=== PATIENT | male | born 2000 | race Caucasian/White ===

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

== ENCOUNTER 2019-06-26 20:08 | Emergency (ER) | payer SELFPAY ==
[2019-06-26 20:15] VITALS: BP 139/87; PULSE 61; TEMP 98.3; BMI 27.8
[2019-06-26] MEDS ORDERED: DIPHTH,PERTUSS(ACELL),TET 0.5 ML DISP.SYRIN IM ONE (20:51)
[2019-06-26] MEDS ORDERED: IBUPROFEN 400 MG TABLET (FP) PO ONE ×2 (20:51→20:53)
[2019-06-26] MEDS ORDERED: TETANUS IMMUNE GLOBULIN 250 UNITS DISP.SYRIN IM ONE (20:51)
[2019-06-26] MEDS ORDERED: TETANUS AND DIPHTHERIA TOXOID 0.5 ML DISP.SYRIN IM ONE (20:51)
[2019-06-26] MEDS ORDERED: SULFAMETHOXAZOLE/TRIMETHOPRIM 800MG/160MG D.S. TABLET PO ONE (21:08)
--- NOTE | 2019-06-26 21:09 | PDOC ---
Documentation entered by Ben Jansen SCRIBE, acting as scribe for Maine Palma MD. Maine Palma MD: This documentation has been prepared by the johneInderjit Aiswarya, SCRIBE, under my direction and personally reviewed by me in its entirety. I confirm that the documentation accurately reflects all work, treatment, procedures, and medical decision making performed by me. History of Present Illness - General Chief Complaint: Pain Stated Complaint: L 1ST DIGIT INJURY Time Seen by Provider: 06/26/19 20:45 History Source: Patient Exam Limitations: No Limitations - History of Present Illness Initial Comments: 06/26/19 21:06 Assessment and plan: This is a 19-year-old male who comes in complaining of injury to his left thumb. Patient has a complete avulsion of the left nail with with some associated tearing and maceration of the tissues surrounding the nailbed. There was also a laceration of the nail bed. X-ray was done that does show a tuft fracture of the distal phalanx that is nondisplaced. Procedure note nailbed laceration repair Finger was anesthetized with 1% lidocaine via a ring block and finger and laceration were cleaned thoroughly with irrigation and scrubbing Nailbed was repaired with a total of 4 sutures of 4-0 Polysorb. Sterile dressing and Band-Aid were applied patient tolerated well. Patient given a thumb splint and discharged. Patient started on an antibiotic given the fact that it was a dirty wound and also a tuft fracture. Patient given Bactrim for which she will take for 7 days. To prevent infection Patient has not had any immunizations including no childhood immunizations therefore is never had a tetanus shot so patient was given tetanus immunoglobulin in addition to a Boostrix. 06/26/19 22:09 The patient is a 19 year old male, with no significant PMH, who presents to the emergency department with left thumb laceration that occurred today. The patient states he was working on his car when his nail came off. The patient reports bleeding and mild pain to the left 5th digit nail bed. Denies any numbness or tingling. Denies pain on flexion and extension. Denies any other trauma. PAST MEDICAL HISTORY: no significant history PAST SURGICAL HISTORY: no significant history FAMILY HISTORY: no pertinent history SOCIAL HISTORY: Pt lives with family and is employed. MEDICATIONS: reviewed ALLERGIES: As per nursing notes Adult ROS General: No fevers or chills, no weakness, no weight loss CardioVascular: No chest pain or shortness of breath Respiratory:No cough, or wheezing. Musculoskeletal: No joint or muscle pain or swelling Neurologic: No headache, vertigo, dizziness or loss of consciousness Psychiatric: nor depression Skin: +left thumb laceration Endocrine: no increased thirst or abnormal weight change Allergic: no skin or latex allergy All other systems reviewed and normal Basic PE GENERAL: The patient is awake, alert, and fully oriented, in no acute distress. HEAD: Normal with no signs of trauma. EYES: Pupils equal, round and reactive to light, extraocular movements intact, sclera anicteric, conjunctiva clear. EXTREMITIES: Normal range of motion, no edema. NEUROLOGICAL: Normal speech, normal gait. PSYCH: Normal mood, normal affect. SKIN: +Left thumbnail with some avulsion surrounding the skin and nail. 1 cm laceration mid section of nail bed with active bleeding of the fingernail. Tenderness on palpation. Full ROM and sensation. Tenderness and swelling at the base of thumb. Past History - Past Medical History Allergies/Adverse Reactions: Allergies Allergy/AdvReac Type Severity Reaction Status Date / Time No Known Allergies Allergy Verified 11/04/16 17:26 Home Medications: Ambulatory Orders Sulfamethoxazole/Trimethoprim [Bactrim DS -] 1 tab PO BID #14 tablet 06/26/19 COPD: No - Immunization History Immunization Up to Date: No - Psycho Social/Smoking Cessation Hx Smoking History: Unknown if ever smoked Have you smoked in the past 12 months: No Number of Cigarettes Smoked Daily: 0 Information on smoking cessation initiated: No Hx Alcohol Use: No Drug/Substance Use Hx: No Substance Use Type: None *Physical Exam - Vital Signs Last Vital Signs Temp Pulse Resp BP Pulse Ox 98.3 F 61 14 139/87 96 06/26/19 20:10 06/26/19 20:10 06/26/19 20:10 06/26/19 20:10 06/26/19 20:10 ED Treatment Course - RADIOLOGY Radiology Studies Ordered: Category Date Time Status FINGER(S) LEFT [RAD] Stat Radiology 06/26/19 20:50 Ordered - Medications Given in the ED: ED Medications Discontinued Medications Generic Name Dose Route Start Last Admin Trade Name Freq PRN Reason Stop Dose Admin Ibuprofen 800 mg 06/26/19 20:51 06/26/19 20:53 Motrin - PO 06/26/19 20:52 800 mg ONCE ONE Administration Discharge - Discharge Information Problems reviewed: Yes Clinical Impression/Diagnosis: Open fracture of tuft of distal phalanx of left thumb Nail avulsion, finger Qualifiers: Encounter type: initial encounter Qualified Code(s): S61.309A - Unspecified open wound of unspecified finger with damage to nail, initial encounter Condition: Good Disposition: HOME - Admission No - Additional Discharge Information Prescriptions: Sulfamethoxazole/Trimethoprim [Bactrim DS -] 1 tab PO BID #14 tablet - Follow up/Referral Referrals: Onesimo Broderick MD [Staff Physician] - - Patient Discharge Instructions Additional Instructions: Tylenol or Motrin as needed for pain. Take Bactrim 1 tablet twice a day for 7 days to prevent infection. Clean the laceration once a day with some peroxide reapply some bacitracin and a Band-Aid. Keep the thumb covered when you are working in a dirty environment to keep it clean. Wear the splint as needed for comfort and protection. Return to the emergency department immediately with ANY new, persistent or worsening symptoms. Continue any medications as previously prescribed by your physician. You should follow up with your primary doctor as soon as possible regarding today's emergency department visit. . Please make sure your doctor reviews the results of your emergency evaluation. Thank you for coming to the Emergency Department today for your care. It was a pleasure to see you today. Please note that your evaluation is INCOMPLETE until you follow-up with your doctor. - Post Discharge Activity
[2019-06-26] MEDS ORDERED: SULFAMETHOXAZOLE/TRIMETHOPRIM 800MG/160MG D.S. TABLET ONE (21:20)
== END 2019-06-26 22:28 | disposition home or self-care (01) ==
LOC: FER 20:08
PROC: 0HDQXZZ Extraction of Finger Nail, External Approach (ICD-10-PCS; principal; 2019-06-26)
PROC: 2W3HX1Z Immobilization of Left Thumb using Splint (ICD-10-PCS; 2019-06-26)
PROC: 3E0234Z Introduction of Serum, Toxoid and Vaccine into Muscle, Percutaneous Approach (ICD-10-PCS; 2019-06-26)
PROC: 3E023GC Introduction of Other Therapeutic Substance into Muscle, Percutaneous Approach (ICD-10-PCS; 2019-06-26)
DX: S61.112A Laceration without foreign body of left thumb with damage to nail, initial encounter (principal); S92.425A Nondisplaced fracture of distal phalanx of left great toe, initial encounter for closed fracture; X58.XXXA Exposure to other specified factors, initial encounter; Y93.89 Activity, other specified; Y92.89 Other specified places as the place of occurrence of the external cause; Y99.0 Civilian activity done for income or pay
CPT/HCPCS: 73140-TC-LT-FY; 90715; 99283-25; J1670

== ENCOUNTER 2021-05-26 19:57 | Emergency (ER) | payer OTHER ==
[2021-05-26 20:10] VITALS: BP 147/94; PULSE 73; TEMP 98.2; BMI 32.5
[2021-05-26] MEDS ORDERED: DOXYCYCLINE HYCLATE 100 MG CAPSULE PO ONE (22:18)
[2021-05-26] MEDS ORDERED: DOXYCYCLINE HYCLATE 100 MG TABLET PO ONE (22:27)
== END 2021-05-26 22:54 | disposition home or self-care (01) ==
LOC: FER 19:57
PROC: 3E0233Z Introduction of Anti-inflammatory into Muscle, Percutaneous Approach (ICD-10-PCS; principal; 2021-05-26)
DX: N45.2 Orchitis (principal); R10.30 Lower abdominal pain, unspecified; N50.82 Scrotal pain
CPT/HCPCS: 36415; 76870-TC; 81003; 87086; 87491; 87591; 99284-25

== ENCOUNTER 2022-03-27 14:15 | Emergency (ER) | payer OTHER ==
[2022-03-27 14:29] VITALS: BP 127/71; PULSE 77; RESP 20; TEMP 98.2; BMI 29.8
== END 2022-03-27 14:58 | disposition home or self-care (01) ==
LOC: FER 14:15
DX: L23.7 Allergic contact dermatitis due to plants, except food (principal)
CPT/HCPCS: 99281-25

== ENCOUNTER 2024-04-11 11:26 | Emergency (ER) | payer OTHER ==
[2024-04-11 12:53] VITALS: BP 157/94; PULSE 80; RESP 20; TEMP 98.6; BMI 32.5
== END 2024-04-11 14:04 | disposition home or self-care (01) ==
LOC: FER 11:26
DX: M25.551 Pain in right hip (principal); M25.571 Pain in right ankle and joints of right foot; M54.50 Low back pain, unspecified; W11.XXXA Fall on and from ladder, initial encounter
CPT/HCPCS: 72100-TC-FY; 73502-TC-RT-FY; 73610-TC-RT-FY; 73630-TC-RT-FY; 99284-25

== ENCOUNTER 2024-05-08 16:42 | Emergency (ER) | payer OTHER ==
[2024-05-08 16:55] VITALS: BP 136/92; PULSE 78; RESP 18; TEMP 99.5; BMI 32.5
== END 2024-05-08 19:33 | disposition home or self-care (01) ==
LOC: FER 16:42
DX: S46.212A Strain of muscle, fascia and tendon of other parts of biceps, left arm, initial encounter (principal); X50.1XXA Overexertion from prolonged static or awkward postures, initial encounter
CPT/HCPCS: 73060-TC-LT-FY; 73070-TC-LT-FY; 76882-TC-RT-FY; 99284-25